=== PATIENT | female | born 1955 | race Two or more races ===

== ENCOUNTER 2018-10-01 06:40 | Emergency (ER) | payer OTHER, BC ==
[~2018-10-01] VITALS: Ht 160 cm; Wt 81.7 kg
[~2018-10-01 06:40] MED LIST: CALAN SR120 MG PO; LEVOTHYROXINE50 MCG PO; LISINOPRIL20 MG PO; METOPROLOL SUCC25 MG PO; SYNTHROID88 MCG PO
== END 2018-10-01 07:36 | disposition home or self-care (01) ==
LOC: ED 06:40
DX: S61.230A Puncture wound without foreign body of right index finger without damage to nail, initial encounter (principal); I10 Essential (primary) hypertension; E03.9 Hypothyroidism, unspecified; Z90.49 Acquired absence of other specified parts of digestive tract; Z79.899 Other long term (current) drug therapy; W46.1XXA Contact with contaminated hypodermic needle, initial encounter
CPT/HCPCS: 36415; 84460; 86703; 86707; 86803; 87350; 99283